=== PATIENT | male | born 1985 | race Caucasian/White ===

== ENCOUNTER → 2017-07-17 | Outpatient (CLI) | payer OTHER ==
--- NOTE | 2017-07-17 12:20 | Diagnostic Imaging Report ---
CLINICAL INDICATION: Patient with sinus pain and pressure in the maxillary area. EXAM: Axial CT scan of the maxillofacial structures with coronal reformatted images. COMPARISON: None. FINDINGS: There is mild mucosal thickening involving the left frontal recess region. There is patchy apgf-kq-pgflclok mucosal thickening involving the ethmoid sinus with the left side affected the most. There is a large amount of peripheral mucosal thickening and fluid in the left maxillary sinus. There is a large mucus retention cyst in the right maxillary sinus. The left ostiomeatal unit region is obstructed. There is cnwc-ay-rozyolny peripheral mucosal thickening in the sphenoid sinus. Nasal septum is relatively midline. Extracranial soft tissues and orbits are unremarkable. Visualized intracranial structures are unremarkable. IMPRESSION: 1: Paranasal sinusitis with the left maxillary sinus and ethmoid sinus affected the most. There is obstruction of the left ostiomeatal unit. 2: There is a large right maxillary sinus mucous retention cyst. Dictated by: Dictated on workstation # [id number]
== END ==
LOC: RAD 11:43
PROVIDERS: ATTEND Internal Medicine
DX: J32.2 Chronic ethmoidal sinusitis (principal); J32.0 Chronic maxillary sinusitis; J34.1 Cyst and mucocele of nose and nasal sinus
CPT/HCPCS: 70486

== ENCOUNTER 2019-04-22 05:38 | Outpatient (CLI) | payer OTHER ==
[~2019-04-22] VITALS: Ht 185.4 cm; Wt 129.5 kg
[2019-04-22] MEDS ORDERED: ALLO300T2 PO (14:34)
[2019-04-22] MEDS ORDERED: AMPH10TA PO (14:34)
[2019-04-22] MEDS ORDERED: OMEP40CA27 PO (14:34)
== END 2019-04-22 14:39 | disposition home or self-care (01) ==
LOC: PREOP 05:38
PROVIDERS: ATTEND Otolaryngology Otolaryngology/Facial Plastic Surgery
DX: Z01.818 Encounter for other preprocedural examination (principal)

== ENCOUNTER 2019-04-30 06:07 | Day surgery (SDC) | payer BC, OTHER ==
[~2019-04-30] VITALS: Ht 185 cm; Wt 129.5 kg
[2019-04-30] VITALS (10 sets, daily range): BP systolic 92–129; BP diastolic 71–93
[~2019-04-30 06:07] MED LIST: ALLO300T2 PO; AMPH10TA PO; OMEP40CA27 PO
[2019-04-30] MEDS ORDERED: HYDROCORTISONE 100 MG/2 ML (Solu-CORTEF) VIAL IV ONE (06:30)
[2019-04-30] MEDS ORDERED: AMPICILLIN/SULBACTAM INJECTION 1.5 GM in NS (IVPB) 100 ML IV ONE (06:30)
[2019-04-30 06:39] LABS: BASOPHILS % (AUTO) 0 % (0-10); EOSINOPHILS # (AUTO) 0.1 10^3/uL (0.0-0.3); EOSINOPHILS % (AUTO) 1 % (0-10); HEMATOCRIT 46 % (40-54); LYMPHOCYTES # (AUTO) 1.8 X 10^3 (1.0-4.0); LYMPHOCYTES % (AUTO) 21 % (12-44); MEAN CORPUSCULAR HEMOGLOBIN 30 PG (25-34); MEAN CORPUSCULAR HGB CONC 35 G/DL (32-36); MEAN CORPUSCULAR VOLUME 87 FL (80-99); MEAN PLATELET VOLUME 9.7 FL (7.4-10.4); MONOCYTES % (AUTO) 12 % (0-12); NEUTROPHILS # (AUTO) 5.7 X 10^3 (1.8-7.8); NEUTROPHILS % (AUTO) 66 % (42-75); PLATELET COUNT 126 10^3/uL (130-400); RED CELL DISTRIBUTION WIDTH 14.3 % (10.0-14.5); WHITE BLOOD COUNT 8.6 10^3/uL (4.3-11.0)
[2019-04-30] MEDS ORDERED: MIDAZOLAM 2 MG/2 ML (VERSED) VIAL ONE (06:40)
[2019-04-30] MEDS ORDERED: HYDROCORTISONE 100 MG/2 ML (Solu-CORTEF) VIAL ONE (06:40)
[2019-04-30] MEDS ORDERED: proPOfol 200 MG/20 ML (DIPRIVAN) VIAL IV ONE (06:44)
[2019-04-30] MEDS ORDERED: SEVOFLURANE (ULTANE) 15 ML INHAL SOLN ONE ×4 (06:44→08:54)
[2019-04-30] MEDS ORDERED: GLYCOPYRROLATE 0.2 MG/ML (ROBINUL) 2 ML VIAL ONE (06:44)
[2019-04-30] MEDS ORDERED: DEXAMETHASONE 10 MG/ML (DECADRON) 1 ML VIAL ONE (06:44)
[2019-04-30] MEDS ORDERED: ROCURONIUM 10 MG/ML 5 ML SYRINGE IV ONE (06:44)
[2019-04-30] MEDS ORDERED: ONDANSETRON 4 MG/2 ML (SDV) Z0FRAN ONE (06:44)
[2019-04-30] MEDS ORDERED: LIDOCAINE PF 2% 5 ML (XYLOCAINE) VIAL ONE (06:44)
[2019-04-30] MEDS ORDERED: NEOSTIGMINE 3 MG/3 ML VIAL ONE (06:44)
[2019-04-30] MEDS ORDERED: fentaNYL INJECTION 100 MCG/2 ML AMP ONE (06:45)
[2019-04-30] MEDS ORDERED: CATHETER FLUSH 10 ML SYR IV PRN (06:45)
[2019-04-30] MEDS ORDERED: LIDOCAINE/EPI 1%-1:100,000 (XYLOCAINE) 20ML ONE (06:47)
[2019-04-30] MEDS ORDERED: COCAINE HCL 4% 2 ML SYR ONE (06:47)
[2019-04-30] MEDS ORDERED: PHENYLEPHRINE 0.5% NASAL SPR (NEO-SYNEPHRINE) REG ONE (06:47)
[2019-04-30] MEDS ORDERED: BSS 15 ML ONE (06:47)
[2019-04-30] MEDS: LACTATED RINGERS 1,000 ML IV PRN ×2 (06:49→09:28)
[2019-04-30 07:05] LABS: BUN/CREATININE RATIO 15; CARBON DIOXIDE 29 MMOL/L (21-32); CHLORIDE 104 MMOL/L (98-107); CREATININE SERUM 1.15 MG/DL (0.60-1.30); GFR ESTIMATED > 60; GLUCOSE 83 MG/DL (70-105); POTASSIUM 3.5 MMOL/L (3.6-5.0); SODIUM 143 MMOL/L (135-145)
[2019-04-30] MEDS ORDERED: MIDAZOLAM 2 MG/2 ML (VERSED) VIAL IV ONE (07:15)
[2019-04-30] MEDS ORDERED: ACETAMINOPHEN 325 MG TABLET PO PRN (08:45)
[2019-04-30] MEDS ORDERED: D5 1/2 NS W/KCL 20 MEQ/L 1,000 ML IV SCH (08:45)
[2019-04-30] MEDS ORDERED: PROMETHAZINE INJ 25 MG/ML (PHENERGAN) AMP IVP PRN (08:45)
[2019-04-30] MEDS ORDERED: predniSONE 20 MG TAB PO ONE (08:45)
[2019-04-30] MEDS ORDERED: HYDROcodone/APAP 5 MG/325 MG (LORTAB) TAB PO PRN (08:45)
--- NOTE | 2019-04-30 08:45 | Progress Note-Pre Operative ---
Pre-Operative Progress Note H&P Reviewed The H&P was reviewed, patient examined and no changes noted. Date Seen by Provider: Apr 30, 2019 Time Seen by Provider: 07:00 Date H&P Reviewed: Apr 30, 2019 Time H&P Reviewed: 07:00 Pre-Operative Diagnosis: Bilat Chrnoic Sinusitis, Deviated nasal septum, Bialt hyper of inf turbs THELMA BARNES MD Apr 30, 2019 08:45
--- NOTE | 2019-04-30 08:47 | Progress Note-Post Operative ---
Post-Operative Progess Note Surgeon (s)/Music Composition Teacher (s) Surgeon THELMA BARNES MD Music Composition Teacher n/a Pre-Operative Diagnosis Bilat Chrnoic Sinusitis, Deviated nasal septum, Bialt hyper of inf turbs Post-Operative Diagnosis same Post-Op Procedure Note Date of Procedure: Apr 30, 2019 Name of Procedure Performed: Bilat ESS, Nasal Septoplasty, Bialt REd of Inf Turbs Description & Findings Description and Findings: n/a Anesthesia Type get Estimated Blood Loss minimal Packing none. Specimen(s) collected/removed bialt Chrnic Sinus disesae, nasal septum THELMA BARNES MD Apr 30, 2019 08:47
[2019-04-30] MEDS ORDERED: morphine INJ 10 MG/ML 1ML (SYR OR VIAL) IVP ONE (09:00)
[2019-04-30] MEDS ORDERED: HYDROmorphone 2 MG/ML VIAL (DILAUDID) IV ONE (09:00)
[2019-04-30] MEDS ORDERED: MEPERIDINE (DEMEROL) INJ 50 MG/ML IVP ONE (09:00)
[2019-04-30] MEDS ORDERED: ONDANSETRON 4 MG/2 ML (SDV) Z0FRAN IVP PRN (09:00)
[2019-04-30] MEDS ORDERED: PROMETHAZINE INJ 25 MG/ML (PHENERGAN) AMP IVP ONE (09:00)
[2019-04-30] MEDS ORDERED: morphine INJ 10 MG/ML 1ML (SYR OR VIAL) ONE (09:06)
--- NOTE | 2019-04-30 10:25 | Anesthesia-General Post-Op ---
General Patient Condition Mental Status/LOC: Same as Preop Cardiovascular: Satisfactory Nausea/Vomiting: Absent Respiratory: Satisfactory Pain: Controlled Complications: Absent Post Op Complications Complications None Follow Up Care/Instructions Patient Instructions None needed. Anesthesia/Patient Condition Patient Condition Patient is doing well, no complaints, stable vital signs, no apparent adverse anesthesia problems. No complications reported per nursing. ALEXANDRIA LYNNE CRNA Apr 30, 2019 10:25
[2019-04-30] MEDS ORDERED: PRD20T PO (10:26)
[2019-04-30] MEDS ORDERED: HYDR-4226 PO (10:26)
[2019-04-30] MEDS ORDERED: AMOX-355 PO (10:26)
--- OUTSIDE RECORDS SUMMARY | 2019-05-04 12:27 | XMS REPORT | Continuity of Care Document ---
Author Organization Unknown Address Unknown Phone Unavailable Allergies Active Description Code Type Severity Reaction Onset Reported/Identified Relationship to Patient Clinical Status Yes No Known Drug Allergies [id number] Drug Allergy Unknown N/A 04/22/2019 Medications There is no data. Problems Date Dx Coded Attending Type Code Diagnosis Diagnosed By 07/18/2017 MARIE BERNAL DO, Ot J32.0 CHRONIC MAXILLARY SINUSITIS 07/18/2017 MARIE BERNAL DO, Ot J32.2 CHRONIC ETHMOIDAL SINUSITIS 07/18/2017 MARIE BERNAL DO, Ot J32.0 CHRONIC MAXILLARY SINUSITIS 07/18/2017 MARIE BERNAL DO, Ot J32.2 CHRONIC ETHMOIDAL SINUSITIS 07/18/2017 MARIE BERNAL DO, Ot J32.0 CHRONIC MAXILLARY SINUSITIS 07/18/2017 MARIE BERNAL DO, Ot J32.2 CHRONIC ETHMOIDAL SINUSITIS 07/18/2017 MARIE BERNAL DO, Ot J34.1 CYST AND MUCOCELE OF NOSE AND NASAL SINU 12/13/2017 MARIE BERNAL DO, Ot J32.0 CHRONIC MAXILLARY SINUSITIS 12/13/2017 MARIE BERNAL DO, Ot J32.2 CHRONIC ETHMOIDAL SINUSITIS 12/13/2017 MARIE BERNAL DO, Ot J34.1 CYST AND MUCOCELE OF NOSE AND NASAL SINU 04/22/2019 MOLLY KEANE, THELMA Pozo Ot Z01.818 ENCOUNTER FOR OTHER PREPROCEDURAL EXAMIN 04/23/2019 THELMA BARNES MD Ot Z01.818 ENCOUNTER FOR OTHER PREPROCEDURAL EXAMIN 04/23/2019 MARIE BERNAL DO, Ot J32.0 CHRONIC MAXILLARY SINUSITIS 04/23/2019 MARIE BERNAL DO, Ot J32.2 CHRONIC ETHMOIDAL SINUSITIS 04/23/2019 MARIE BERNAL DO Ot J34.1 CYST AND MUCOCELE OF NOSE AND NASAL SINU 04/28/2019 BERNAL DO, MARIE J Ot J32.0 CHRONIC MAXILLARY SINUSITIS 04/28/2019 BERNAL DO, MARIE Doss Ot J32.2 CHRONIC ETHMOIDAL SINUSITIS 04/28/2019 BERNAL DO, MARIE Doss Ot J34.1 CYST AND MUCOCELE OF NOSE AND NASAL SINU 04/29/2019 BERNAL DO, MARIE Doss Ot J32.0 CHRONIC MAXILLARY SINUSITIS 04/29/2019 BERNAL DO, MARIE Doss Ot J32.2 CHRONIC ETHMOIDAL SINUSITIS 04/29/2019 BERNAL DO, MARIE Doss Ot J34.1 CYST AND MUCOCELE OF NOSE AND NASAL SINU 04/30/2019 BERNAL DO, MARIE Doss Ot J32.0 CHRONIC MAXILLARY SINUSITIS 04/30/2019 BERNAL DO, MARIE Doss Ot J32.2 CHRONIC ETHMOIDAL SINUSITIS 04/30/2019 BERNAL DO, MARIE Doss Ot J34.1 CYST AND MUCOCELE OF NOSE AND NASAL SINU Procedures There is no data. Results Test Result Range Complete blood count (CBC) with automate d white blood cell (WBC) differential - 04/30/19 06:35 Blood leukocytes automated count (number/volume) 8.6 10*3/uL 4.3-11.0 Blood erythrocytes automated count (number/volume) 5.28 10*6/uL 4.35-5.85 Venous blood hemoglobin measurement (mass/volume) 16.0 g/dL 13.3-17.7 Blood hematocrit (volume fraction) 46 % 40-54 Automated erythrocyte mean corpuscular volume 87 [ foz_us] 80-99 Automated erythrocyte mean corpuscular h emoglobin (mass per erythrocyte) 30 pg 25-34 Automated erythrocyte mean corpuscular h emoglobin concentration measurement (mass/volume) 35 g/dL 32-36 Automated erythrocyte distribution width ratio 14. 3 % 10.0- 14.5 Automated blood platelet count (count/volume) 126 10*3/uL 130-400 Automated blood platelet mean volume measurement 9.7 [foz_us] 7.4-10.4 Automated blood neutrophils/100 leukocytes 66 % 42-75 Automated blood lymphocytes/100 leukocytes 21 % 12-44 Blood monocytes/100 leukocytes 12 % 0-12 Automated blood eosinophils/100 leukocytes 1 % 0-10 Automated blood basophils/100 leukocytes 0 % 0-10 Blood neutrophils automated count (number/volume) 5.7 10*3 1.8-7.8 Blood lymphocytes automated count (number/volume) 1.8 10*3 1.0-4.0 Blood monocytes automated count (number/volume) 1. 0 10*3 0.0-1.0 Automated eosinophil count 0.1 10*3/uL 0 .0-0.3 Automated blood basophil count (count/volume) 0.0 10*3/uL 0.0-0.1 Whole blood basic metabolic panel - 07/14 06:35 Serum or plasma sodium measurement (moles/volume) 143 mmol/L 135-145 Serum or plasma potassium measurement (moles/volume) 3.5 mmol/L 3.6-5.0 Serum or plasma chloride measurement (moles/volume) 104 mmol/L 98-107 Carbon dioxide 29 mmol/L 21-32 Serum or plasma anion gap determination (moles/volume) 10 mmol/L 5-14 Serum or plasma urea nitrogen measurement (mass/volume ) 17 mg/dL 7-18 Serum or plasma creatinine measurement (mass/volume) 1.15 mg/dL 0.60-1.30 Serum or plasma urea nitrogen/creatinine mass ratio 15 NRG Serum or plasma creatinine measurement w ith calculation of estimated glomerular filtration rate > NRG Serum or plasma glucose measurement (mass/volume) 83 mg/dL 70-105 Serum or plasma calcium measurement (mass/volume) 9.0 mg/dL 8.5-10.1 Methicillin resistant Staphylococcus aur eus (MRSA) screening culture - 04/30/19 06:35 Methicillin resistant Staphylococcus aureus (MRSA) scr eening culture NEG NRG Encounters ACCT No. Visit Date/Time Discharge Status Pt. Type Provider Facility Loc./Unit Complaint [id number] 04/30/2019 06:07:00 020 11:03:00 DIS Outpatient [facility] CHRON[facility] S[facility]USITIS,AMINAA FREDY SEPTUM [id number] 04/22/2019 05:38:00 020 14:39:00 DIS Outpatient THELMA BARNES MD [facility] PREOP CHONIC SINUSITIS, AMINAA FREDY SEPTUM [id number] 11/18/2017 11:19:00 018 23:59:59 CLS Preadmit MARIE EBRNAL DO [facility] SLEEP G47.33 DEMETRICE [id number] 07/17/2017 11:43:00 018 23:59:59 [facility] Outpatient MARIE BERNAL DO [facility] RAD J01.01
== END 2019-04-30 11:03 | disposition home or self-care (01) ==
LOC: SDC 06:07
PROVIDERS: ATTEND Otolaryngology Otolaryngology/Facial Plastic Surgery
DX: J34.2 Deviated nasal septum (principal); J32.9 Chronic sinusitis, unspecified; J34.89 Other specified disorders of nose and nasal sinuses; J34.3 Hypertrophy of nasal turbinates; R09.81 Nasal congestion; J30.9 Allergic rhinitis, unspecified; K21.9 Gastro-esophageal reflux disease without esophagitis; E66.9 Obesity, unspecified; M10.9 Gout, unspecified; Z79.899 Other long term (current) drug therapy; Z90.89 Acquired absence of other organs; Z68.37 Body mass index [BMI] 37.0-37.9, adult
CPT/HCPCS: 36415; 80048; 85025; 87081

== ENCOUNTER 2020-01-31 17:59 | Inpatient (IN) | payer BC ==
[~2020-01-31] VITALS: Ht 185 cm; Wt 131.5 kg
[~2020-01-31 17:59] MED LIST changes: +AMOX-355 PO; +HYDR-4226 PO; +PRD20T PO
[2020-01-31] MEDS ORDERED: LACTATED RINGERS 1,000 ML IV STA (18:33)
--- NOTE | 2020-01-31 18:40 | ED General ---
General Chief Complaint: Respiratory Problems Stated Complaint: COVID POSITIVE/LOW O2 Nursing Triage Note: PT PRESENTS TO ED WITH COMPLAINTS OF SOA, FEVER, AND COUGH. PT STARTED FEELING ILL ON 01/22. PT REPORTS HE TESTED POSITIVE FOR COVID ON 02/23. PT REPORTS INCREASED SOA WITH MOVEMENT/AMBULATION AND 02 SAT AT HOME OF UPPER 80%. Nursing Sepsis Screen: Possible Sepsis Risk Source of Information: Patient Exam Limitations: No Limitations History of Present Illness Date Seen by Provider: Jan 31, 2020 Time Seen by Provider: 18:21 Initial Comments Here with report of shortness of air with O2 sat in the mid 80s at home with any activity. Resting O2 sat is 90-91. He is positive for COVID-19 and is at day 8 of the illness. Tested at [place] [facility] on 01/24/2029 was positive. They did initiate azithromycin as well as 10-day dose of dexamethasone. He has completed the azithromycin and is still on dexamethasone. Denies nausea, vomiting or diarrhea. Has had persistent fever and weakness with headache. Timing/Duration: 1 Week, Getting Worse Severity: Moderate Modifying Factors: improves with Rest Associated Systoms: No Chest Pain; Cough, Fever/Chills; No Nausea/Vomiting; Shortness of Air, Weakness Allergies and Home Medications Allergies Coded Allergies: No Known Drug Allergies (Unverified , 04/22/19) Home Medications Allopurinol 300 Mg Tablet, 300 MG PO DAILY, (Reported) Amoxicillin/Potassium Clav 1 Each Tablet, 1 EACH PO BID Prescribed by: ELVIN BURKS on 04/30/19 1026 Amphetamine Sulfate 10 Mg Tablet, 10 MG PO DAILY, (Reported) Hydrocodone/Acetaminophen 1 Each Tablet, 1-2 TAB PO Q4-6HR Prescribed by: ELVIN BURKS on 04/30/19 1026 Omeprazole 40 Mg Capsule.dr, 40 MG PO DAILY, (Reported) Prednisone 20 Mg Tab, 20 MG PO UD Prescribed by: ELVIN BURKS on 04/30/19 1026 Patient Home Medication List Home Medication List Reviewed: Yes Review of Systems Review of Systems Constitutional: see HPI EENTM: nose congestion; No throat pain Respiratory: cough, short of breath Cardiovascular: No chest pain, No edema Gastrointestinal: see HPI; No nausea, No vomiting Genitourinary: no symptoms reported Musculoskeletal: No joint pain; muscle pain Skin: no symptoms reported All Other Systems Reviewed Negative Unless Noted: Yes Past Jhczvmd-Wbdlmy-Tludfg Hx Past Med/Social Hx: Reviewed Nursing Past Med/Soc Hx Patient Social History Alcohol Use: Occasionally Uses Recreational Drug Use: No Smoking Status: Former Smoker Former Smoker, Quit: Apr 22, 2014 Recent Foreign Travel: No Contact w/Someone Who Travel: No Recent Infectious Disease Expo: No Recent Hopitalizations: No Physical Abuse: No Sexual Abuse: No Mistreated: No Fear: No Seasonal Allergies Seasonal Allergies: Yes Past Medical History Surgeries: Yes (R shoulder) Orthopedic, Tonsillectomy Respiratory: No Cardiac: No Neurological: No Genitourinary: No Gastrointestinal: Yes Gastroesophageal Reflux Musculoskeletal: Yes Gout Endocrine: No HEENT: No Cancer: No Psychosocial: No Integumentary: No Blood Disorders: No Family Medical History Reviewed Nursing Family Hx Physical Exam-Suspected Sepsis Physical Exam Vital Signs Vital Signs - First Documented 01/31/20 18:17 Temp 36.8 Pulse 92 Resp 33 B/P (MAP) 120/89 (99) Pulse Ox 97 O2 Delivery Nasal Cannula O2 Flow Rate 2.00 Capillary Refill : Less Than 3 Seconds Blood Pressure Mean: 99 Height, Weight, BMI Height: '" Weight: lbs. oz. kg; 38.00 BMI Method: General Appearance: No Apparent Distress, WD/WN HEENT: PERRL/EOMI, Pharyngeal Erythema Neck: Non Tender, Supple Respiratory: Lungs Clear, Normal Breath Sounds Cardiovascular: Regular Rate, Rhythm, No Murmur Gastrointestinal: Non Tender, Soft Back: Normal Inspection, No CVA Tenderness, No Vertebral Tenderness Extremity: Normal Range of Motion, Non Tender Neurologic/Psychiatric: Alert, Oriented x3 Skin: normal color, warm/dry Focused Exam Lactate Level 01/31/20 18:37: Lactic Acid Level 0.83 Lactic Acid Level Laboratory Tests Test 01/31/20 18:37 Lactic Acid Level 0.83 MMOL/L (0.50-2.00) Progress/Results/Core Measures Suspected Sepsis Recent Fever Within 48 Hours: Yes Infection Criteria Present: Documented Infection New/Unexplained Altered Menta: No Sepsis Screen: Possible Sepsis Risk SIRS Temperature: Pulse: 92 Respiratory Rate: 33 Laboratory Tests 01/31/20 18:37: White Blood Count 2.7L Blood Pressure 120 /89 Mean: 99 01/31/20 18:37: Lactic Acid Level 0.83 Laboratory Tests 01/31/20 18:37: Creatinine 1.17, INR Comment 1.0, Platelet Count 118L, Total Bilirubin 0.5 Results/Orders Lab Results Laboratory Tests Test 01/31/20 18:37 Range/Units White Blood Count 2.7 L 4.3-11.0 10^3/uL Red Blood Count 4.77 4.30-5.52 10^6/uL Hemoglobin 14.8 13.3-17.7 g/dL Hematocrit 42 40-54 % Mean Corpuscular Volume 88 80-99 fL Mean Corpuscular Hemoglobin 31 25-34 pg Mean Corpuscular Hemoglobin Concent 35 32-36 g/dL Red Cell Distribution Width 12.0 10.0-14.5 % Platelet Count 118 L 130-400 10^3/uL Mean Platelet Volume 9.4 9.0-12.2 fL Immature Granulocyte % (Auto) 1 % Neutrophils (%) (Auto) 81 H 42-75 % Lymphocytes (%) (Auto) 12 12-44 % Monocytes (%) (Auto) 6 0-12 % Eosinophils (%) (Auto) 0 0-10 % Basophils (%) (Auto) 0 0-10 % Neutrophils # (Auto) 2.2 1.8-7.8 10^3/uL Lymphocytes # (Auto) 0.3 L 1.0-4.0 10^3/uL Monocytes # (Auto) 0.2 0.0-1.0 10^3/uL Eosinophils # (Auto) 0.0 0.0-0.3 10^3/uL Basophils # (Auto) 0.0 0.0-0.1 10^3/uL Immature Granulocyte # (Auto) 0.0 0.0-0.1 10^3/uL Prothrombin Time 13.5 12.2-14.7 SEC INR Comment 1.0 0.8-1.4 Activated Partial Thromboplast Time 38 H 24-35 SEC D-Dimer 0.36 0.00-0.49 UG/ML Sodium Level 138 135-145 MMOL/L Potassium Level 3.7 3.6-5.0 MMOL/L Chloride Level 104 98-107 MMOL/L Carbon Dioxide Level 21 21-32 MMOL/L Anion Gap 13 5-14 MMOL/L Blood Urea Nitrogen 14 7-18 MG/DL Creatinine 1.17 0.60-1.30 MG/DL Estimat Glomerular Filtration Rate > 60 BUN/Creatinine Ratio 12 Glucose Level 170 H 70-105 MG/DL Lactic Acid Level 0.83 0.50-2.00 MMOL/L Calcium Level 8.4 L 8.5-10.1 MG/DL Corrected Calcium 8.4 L 8.5-10.1 MG/DL Total Bilirubin 0.5 0.1-1.0 MG/DL Aspartate Amino Transf (AST/SGOT) 19 5-34 U/L Alanine Aminotransferase (ALT/SGPT) 18 0-55 U/L Alkaline Phosphatase 38 L 40-136 U/L C-Reactive Protein High Sensitivity 13.71 H 0.00-0.50 MG/DL Total Protein 7.1 6.4-8.2 GM/DL Albumin 4.0 3.2-4.5 GM/DL My Orders Orders - GABRIELA GRIGGS MD Lactated Ringers (Lr 1000 Ml Iv Solution (01/31/20 18:33) Cbc With Automated Diff (01/31/20 18:33) Comprehensive Metabolic Panel (01/31/20 18:33) Blood Culture (01/31/20 18:33) Sputum Culture (01/31/20 18:33) Urinalysis (01/31/20 18:33) Urine Culture (01/31/20 18:33) Protime With Inr (01/31/20 18:33) Partial Thromboplastin Time (01/31/20 18:33) Chest 1 View, Ap/Pa Only (01/31/20 18:33) Ed Iv/Invasive Line Start (01/31/20 18:33) Vital Signs Adult Sepsis Patie Q15M (01/31/20 18:33) O2 (01/31/20 18:33) Remove Rings In Anticipation O (01/31/20 18:33) Lactic Acid Analyzer (01/31/20 18:33) Fibrin Degradation Products (01/31/20 18:33) Procalcitonin (Pct) (01/31/20 18:33) Hs C Reactive Protein (01/31/20 18:33) Convalescent Plasma (01/31/20 19:30) Abo Rh Type (01/31/20 19:30) Vital Signs/I&O 01/31/20 01/31/20 18:17 18:30 Temp 36.8 Pulse 92 Resp 33 B/P (MAP) 120/89 (99) Pulse Ox 97 97 O2 Delivery Nasal Cannula Nasal Cannula O2 Flow Rate 2.00 2.00 Capillary Refill : Less Than 3 Seconds Blood Pressure Mean: 99 Progress Note : Progress Note Seen and evaluated. IV, labs, chest x-ray, blood cultures and lactic acid ordered. Monitor patient. 1924: Chest x-ray shows bilateral infiltrates. Patient will require admission. I have discussed the case with Dr. Hanna and she accepts patient for admission to the medical floor. We will continue oxygen and initiate remdesivir and convalescent plasma. We will continue Decadron. All of this was discussed with the patient who agrees. I did discuss with him about emergency use authorization for convalescent plasma and discussed risk and benefits and that this is a study therapy. After discussion, patient verbalized that he would like to pursue therapy with both convalescent plasma and remdesivir. Admit, inpatient status. Patient agrees with plan. Diagnostic Imaging Diagonstic Imaging: Xray Plain Films/CT/US/NM/MRI: chest Comments Bilateral infiltrates consistent with Covid pneumonia Departure Communication (Admissions) Time/Spoke to Admitting Phy: 19:25 Impression Primary Impression: Pneumonia due to COVID-19 virus Additional Impression: Hypoxia Disposition: ADMITTED INPATIENT Condition: Stable Admissions Decision to Admit Reason: Admit from ER (General) Decision to Admit/Date: Jan 31, 2020 Time/Decision to Admit Time: 19:25 Departure-Patient Inst. Referrals: MARIE BERNAL DO (PCP/Family) Primary Care Physician GABRIELA GRIGGS MD Jan 31, 2020 18:40
[2020-01-31 18:49] LABS: BASOPHILS % (AUTO) 0 % (0-10); EOSINOPHILS % (AUTO) 0 % (0-10); HEMATOCRIT 42 % (40-54); HEMOGLOBIN 14.8 g/dL (13.3-17.7); LYMPHOCYTES # (AUTO) 0.3 10^3/uL (1.0-4.0); LYMPHOCYTES % (AUTO) 12 % (12-44); MEAN CORPUSCULAR HEMOGLOBIN 31 pg (25-34); MEAN CORPUSCULAR HGB CONC 35 g/dL (32-36); MEAN CORPUSCULAR VOLUME 88 fL (80-99); MEAN PLATELET VOLUME 9.4 fL (9.0-12.2); MONOCYTES # (AUTO) 0.2 10^3/uL (0.0-1.0); MONOCYTES % (AUTO) 6 % (0-12); NEUTROPHILS # (AUTO) 2.2 10^3/uL (1.8-7.8); NEUTROPHILS % (AUTO) 81 % (42-75); PLATELET COUNT 118 10^3/uL (130-400); WHITE BLOOD COUNT 2.7 10^3/uL (4.3-11.0)
[2020-01-31 19:01] LABS: CHLORIDE 104 MMOL/L (98-107); POTASSIUM 3.7 MMOL/L (3.6-5.0); SODIUM 138 MMOL/L (135-145)
[2020-01-31 19:02] LABS: CALCIUM 8.4 MG/DL (8.5-10.1)
[2020-01-31 19:03] LABS: GLUCOSE 170 MG/DL (70-105); TOTAL PROTEIN 7.1 GM/DL (6.4-8.2)
[2020-01-31 19:04] LABS: CARBON DIOXIDE 21 MMOL/L (21-32)
[2020-01-31 19:05] LABS: BILIRUBIN,TOTAL 0.5 MG/DL (0.1-1.0)
[2020-01-31 19:07] LABS: ALKALINE PHOSPHATASE 38 U/L (40-136); CREATININE SERUM 1.17 MG/DL (0.60-1.30); GFR ESTIMATED > 60
[2020-01-31 19:08] LABS: BUN/CREATININE RATIO 12
[2020-01-31 19:10] LABS: ALANINE AMINOTRANSFERASE 18 U/L (0-55)
[2020-01-31 19:16] LABS: FIBRIN DEGRADATION PRODUCTS 0.36 UG/ML (0.00-0.49); PROTHROMBIN TIME PATIENT 13.5 SEC (12.2-14.7)
[2020-01-31 20:33] VITALS: BP 130/70
[2020-01-31] MEDS: ACETAMINOPHEN 500 MG TAB (TYLENOL) PO PRN (21:26)
[2020-01-31 23:51] VITALS: BP 140/83
[2020-02-01] VITALS (7 sets, daily range): BP systolic 120–161; BP diastolic 66–91
[2020-02-01] MEDS: ENOXAPARIN 40 MG/0.4 ML (LOVENOX) SYR SC SCH ×2 (00:27→21:46)
--- NOTE | 2020-02-01 01:38 | NUR ---
ALbuterol inhaler 4puffs BID and Q2 PRN. IS Therapy BID. Initiate 02 to keep sats greater than 90%. RT to reassess or reevaluate in 72 hours or as needed. Addendum: 02/01/20 at 0138 by JONNIE MAI RT Amended: Links added.
[2020-02-01] MEDS: RT-ALBUTEROL INHALER HFA (VENTOLIN HFA) 18 GM IH PRN ×2 (02:41→17:29)
[2020-02-01] MEDS: ACETAMINOPHEN 500 MG TAB (TYLENOL) PO PRN ×2 (03:37→19:36)
[2020-02-01] MEDS: LACTATED RINGERS 1,000 ML IV SCH ×3 (03:38→21:45)
[2020-02-01] MEDS: RT-ALBUTEROL INHALER HFA (VENTOLIN HFA) 18 GM IH SCH ×2 (06:53→21:38)
[2020-02-01] MEDS ORDERED: FLU QUADRIvalent (3YOA+) 60 mcg/0.5 ml 2020-21 (AFLURIA) IM ONE (07:00)
[2020-02-01] MEDS: dexAMETHasone 6 MG TAB (DECADRON) PO SCH (07:12)
[2020-02-01 07:29] LABS: BASOPHILS % (AUTO) 0 % (0-10); EOSINOPHILS % (AUTO) 0 % (0-10); HEMATOCRIT 40 % (40-54); HEMOGLOBIN 13.8 g/dL (13.3-17.7); LYMPHOCYTES # (AUTO) 0.6 10^3/uL (1.0-4.0); LYMPHOCYTES % (AUTO) 22 % (12-44); MEAN CORPUSCULAR HEMOGLOBIN 31 pg (25-34); MEAN CORPUSCULAR HGB CONC 35 g/dL (32-36); MEAN CORPUSCULAR VOLUME 88 fL (80-99); MEAN PLATELET VOLUME 9.4 fL (9.0-12.2); MONOCYTES # (AUTO) 0.3 10^3/uL (0.0-1.0); MONOCYTES % (AUTO) 11 % (0-12); NEUTROPHILS # (AUTO) 1.9 10^3/uL (1.8-7.8); NEUTROPHILS % (AUTO) 67 % (42-75); PLATELET COUNT 115 10^3/uL (130-400); WHITE BLOOD COUNT 2.8 10^3/uL (4.3-11.0)
[2020-02-01 07:47] LABS: ALBUMIN 3.9 GM/DL (3.2-4.5); CHLORIDE 102 MMOL/L (98-107); POTASSIUM 3.6 MMOL/L (3.6-5.0); SODIUM 139 MMOL/L (135-145)
[2020-02-01 07:48] LABS: CALCIUM 7.9 MG/DL (8.5-10.1)
[2020-02-01 07:49] LABS: GLUCOSE 106 MG/DL (70-105); TOTAL PROTEIN 6.3 GM/DL (6.4-8.2)
[2020-02-01 07:50] LABS: CARBON DIOXIDE 26 MMOL/L (21-32)
[2020-02-01 07:51] LABS: BILIRUBIN,TOTAL 0.5 MG/DL (0.1-1.0)
[2020-02-01 07:53] LABS: ALKALINE PHOSPHATASE 36 U/L (40-136); CREATININE SERUM 0.99 MG/DL (0.60-1.30); GFR ESTIMATED > 60
[2020-02-01 07:54] LABS: BUN/CREATININE RATIO 11
[2020-02-01 07:56] LABS: ALANINE AMINOTRANSFERASE 16 U/L (0-55)
[2020-02-01] MEDS ORDERED: REMDESIVIR INJ 200 MG in NS (IVPB) 210 ML IV NR (08:00)
[2020-02-01] MEDS: PANTOPRAZOLE 40 MG (PROTONIX) TAB PO SCH (09:14)
--- NOTE | 2020-02-01 13:16 | History & Physical-Hospitalist ---
History of Present Illness HPI/Chief Complaint Sin Saleh is a 34 year old male who presented with shortness of breath. He was diagnosed with COVID-19 at Urgent care on 01/24. He first started having symptoms on 01/22. He reports fevers. He has had shortness of breath and cough. He reports body aches. He has had abnormal taste and smell. He has not had much of an appetite until this morning. He reports diarrhea. He denies nausea and vomiting. He denies abdominal pain. Je denies chest pain. He has no other complaints or concerns. Source: patient Exam Limitations: no limitations Date Seen 02/01/20 Time Seen by a Provider: 11:15 Attending Physician Mindi Guerra MD PCP Huang Saul DO Referring Physician Date of Admission Jan 31, 2020 at 19:49 Home Medications & Allergies Home Medications Reviewed patient Home Medication Reconciliation performed by pharmacy medication reconciliations concrete technician and/or nursing. Patients Allergies have been reviewed. Allergies Allergies Coded Allergies No Known Drug Allergies (Unverified04/22/19) Past Kzslxoj-Kyoibm-Zsfucu Hx Past Med/Social Hx: Reviewed Nursing Past Med/Soc Hx Patient Social History Alcohol Use: Occasionally Uses Recreational Drug Use: No Smoking Status: Former Smoker Former Smoker, Quit: Apr 22, 2014 Recent Foreign Travel: No Contact w/other who traveled: No Recent Hopitalizations: No Recent Infectious Disease Expo: Yes (covid19) Seasonal Allergies Seasonal Allergies: Yes Past Medical History Surgeries: Orthopedic, Tonsillectomy Gastrointestinal: Gastroesophageal Reflux Musculoskeletal: Gout History of Blood Disorders: No Family History Reviewed Nursing Family Hx Diabetes mellitus 18 MOTHER Review of Systems Constitutional: fever, malaise EENTM: see HPI Respiratory: cough, short of breath Cardiovascular: no symptoms reported Gastrointestinal: diarrhea Genitourinary: no symptoms reported Musculoskeletal: muscle pain Skin: no symptoms reported Psychiatric/Neurological: No Symptoms Reported Physical Exam Physical Exam Vital Signs Vital Signs - First Documented 01/31/20 02/01/20 18:17 01:27 Temp 36.8 Pulse 92 Resp 33 B/P (MAP) 120/89 (99) Pulse Ox 97 O2 Delivery Nasal Cannula O2 Flow Rate 2.00 FiO2 28 Capillary Refill : Less Than 3 Seconds Height, Weight, BMI Height: '" Weight: lbs. oz. kg; 38.42 BMI Method: General Appearance: No Apparent Distress, Obese HEENT: PERRL/EOMI, Pharynx Normal Neck: Normal Inspection, Supple Respiratory: Lungs Clear, Normal Breath Sounds, Respiratory Distress (tachypnea) Cardiovascular: Regular Rate, Rhythm, No Edema, No Murmur Gastrointestinal: Normal Bowel Sounds, Non Tender, Soft Extremity: Normal Inspection, Non Tender, No Pedal Edema Neurologic/Psychiatric: Alert, Oriented x3, No Motor/Sensory Deficits, Normal Mood/Affect Skin: Normal Color, Warm/Dry Results Results/Procedures Labs Laboratory Tests 01/31/20 18:37 02/01/20 07:06 Patient resulted labs reviewed. Imaging: Reviewed Imaging Report Assessment/Plan Admission Diagnosis Acute respiratory failure due to COVID-19 Admission Status: Inpatient Order (span 2 midnights) Reason for Inpatient Admission: Respiratory failure requring supplemental oxygen COVID-19 requiring inpatient treatment Assessment and Plan Acute respiratory failure due to COVID-19 Lymphopenia due to COVID-19 COVID positive 01/24 at Urgent Care Continue Decadron, taking outpatient since 01/24 Completed course of Azithromycin outpatient Procalitonin remains normal, antibiotics not indicated Started on Remdesivir Convalescent plasma ordered Supplemental oxygen as needed MAT protocol Incentive spirometer D-dimer normal Lovenox DVT prophylaxis Obesity Clinically significant, no acute management needs DVT Prophylaxis: Lovenox Diagnosis/Problems Diagnosis/Problems (1) Pneumonia due to COVID-19 virus Status: Acute (2) Acute respiratory failure due to COVID-19 (3) Lymphopenia associated with COVID-19 Status: Acute (4) Obesity Status: Chronic Clinical Quality Measures DVT/VTE Risk/Contraindication: Risk Factor Score Per Nursin RFS Level Per Nursing on Admit: 2=Moderate CAMELIA SERNA MD Feb 01, 2020 13:16
[2020-02-01] MEDS ORDERED: ACET325T38 PO (14:03)
[2020-02-01] MEDS ORDERED: FENO134C PO (14:03)
[2020-02-01] MEDS ORDERED: DEXT15CA33 PO (14:03)
[2020-02-01] MEDS ORDERED: DEXA6TAB PO (14:03)
--- NOTE | 2020-02-01 14:05 | NUR ---
I SPOKE WITH THE PATIENT ON THE ROOM PHONE AND WENT THROUGH THE EXTERNAL MED HISTORY TO COMPLETE THIS MED REC. PATIENT WAS PRESCRIBED DEXAMETHASONE 6MG ON 01/25/20 SO HIS LAST DOSE SHOULD BE 02/03/20. OTC: TYLENOL
--- NOTE | 2020-02-01 15:20 | NUR ---
"RD ASSESSMENT PMHx: GERD; gout; PT INTERACTION: Note pt is currently in COVID isolation, per chart review. Note all diet information is per chart review, or per nurse aide. Aide states current appetite appears good. Note PO intake 100% x1meal, per chart review. Note no issues with n/v/c/d at this time, and pt stated to aide that last BM was /6. Note pt not currently on bowel regimen per chart review. Note recent 4# wt gain x9mon, per chart review. ABNORMAL NUTRITION-RELATED LAB VALUES LOW: Ca 7.9; alkphos 36; Pro 6.3; HIGH: glu 106; Est. kcal needs: 8057-6086 kcal | 15-18 g Pro/kg Est. Pro needs: 105-132 g Pro | 0.8-1.0 g Pro/kg PES STATEMENT: Given current PO intake, no nutrition diagnosis at this time (NO-1.1). INTERVENTION: Continue with current diet order of Regular diet. DC current supplementation order of Ensure Enlive with meals. Pt is consuming >75% of meals. Will continue to follow and reassess as pt needs, intake, and status change. Ramón Brown, RD LD [phone] cell"
[2020-02-01] MEDS ORDERED: diphenhydrAMINE 25 MG TAB (BENADRYL) PO PRN (20:45)
[2020-02-01] MEDS ORDERED: LOPERAMIDE 2 MG (IMODIUM) TABLET PO PRN (20:45)
[2020-02-01] MEDS ORDERED: DOCUSATE SODIUM 100 MG (COLACE) CAP PO PRN (20:45)
[2020-02-01] MEDS ORDERED: ZOLPIDEM 5 MG (AMBIEN) TAB PO ONE (20:45)
[2020-02-01] MEDS ORDERED: HYDROcodone/APAP 5 MG/325 MG (LORTAB) TAB PO PRN (20:45)
[2020-02-01] MEDS ORDERED: CALCIUM CARBONATE 500 MG (TUMS) TAB.CHEW PO PRN (20:45)
[2020-02-01] MEDS ORDERED: ALPRAZolam 0.25 MG (XANAX) TAB PO PRN (20:45)
[2020-02-01] MEDS ORDERED: ONDANSETRON 4 MG/2 ML (SDV) Z0FRAN IVP PRN (20:45)
[2020-02-01] MEDS ORDERED: DOCUSATE SODIUM 100 MG (COLACE) CAP PO ONE (21:21)
[2020-02-01] MEDS ORDERED: ZOLPIDEM 5 MG (AMBIEN) TAB ONE (21:21)
[2020-02-01] MEDS: MELATONIN 3 MG TABLET PO PRN (21:46)
[2020-02-01] MEDS: ZOLPIDEM 5 MG (AMBIEN) TAB PO SCH (21:51)
[2020-02-01] MEDS: SENNA W/DOCUSATE (SENOKOT S) TABLET PO SCH (21:51)
--- NOTE | 2020-02-01 21:52 | NUR ---
Dr. arias ordered Ambien for sleep 5mg PO ONCE and then 5mg scheduled at 2100. One time dosed administered, scheduled dosed non-administered.
[2020-02-02] VITALS (8 sets, daily range): BP systolic 122–150; BP diastolic 72–94
[2020-02-02 05:21] LABS: ALBUMIN 3.5 GM/DL (3.2-4.5); CHLORIDE 104 MMOL/L (98-107); POTASSIUM 4.2 MMOL/L (3.6-5.0); SODIUM 142 MMOL/L (135-145)
[2020-02-02 05:22] LABS: CALCIUM 7.9 MG/DL (8.5-10.1)
[2020-02-02 05:24] LABS: GLUCOSE 100 MG/DL (70-105); TOTAL PROTEIN 5.6 GM/DL (6.4-8.2)
[2020-02-02 05:25] LABS: BILIRUBIN,TOTAL 0.4 MG/DL (0.1-1.0); CARBON DIOXIDE 28 MMOL/L (21-32)
[2020-02-02 05:27] LABS: ALKALINE PHOSPHATASE 31 U/L (40-136); CREATININE SERUM 0.95 MG/DL (0.60-1.30); GFR ESTIMATED > 60
[2020-02-02 05:28] LABS: BUN/CREATININE RATIO 15
[2020-02-02 05:30] LABS: ALANINE AMINOTRANSFERASE 15 U/L (0-55)
[2020-02-02] MEDS: dexAMETHasone 6 MG TAB (DECADRON) PO SCH (06:07)
[2020-02-02] MEDS: RT-ALBUTEROL INHALER HFA (VENTOLIN HFA) 18 GM IH SCH ×2 (07:36→15:16)
[2020-02-02] MEDS: REMDESIVIR INJ 100 MG in NS (IVPB) 230 ML IV SCH (09:23)
[2020-02-02] MEDS: PANTOPRAZOLE 40 MG (PROTONIX) TAB PO SCH (09:23)
[2020-02-02] MEDS: LACTATED RINGERS 1,000 ML IV SCH (09:23)
[2020-02-02] MEDS: SENNA W/DOCUSATE (SENOKOT S) TABLET PO SCH ×2 (10:06→22:04)
[2020-02-02] MEDS ORDERED: NS IV 500 ML 500 ML IV SCH (13:30)
[2020-02-02] MEDS ORDERED: NS IV 500 ML 500 ML IV PRN (13:45)
--- NOTE | 2020-02-02 14:59 | Progress Note - Hospitalist ---
Subjective HPI/CC On Admission Date Seen by Provider: Feb 02, 2020 Time Seen by Provider: 10:45 Sin Saleh is a 34 year old male who presented with shortness of breath. He was diagnosed with COVID-19 at Urgent care on 01/24. He first started having symptoms on 01/22. He reports fevers. He has had shortness of breath and cough. He reports body aches. He has had abnormal taste and smell. He has not had much of an appetite until this morning. He reports diarrhea. He denies nausea and vomiting. He denies abdominal pain. Je denies chest pain. He has no other complaints or concerns. Subjective/Events-last exam He is feeling better today. He is still short of breath. He still has a cough. He has not had any fevers. He is not having diarrhea. He is not having body aches. Focused Exam Lactate Level 01/31/20 18:37: Lactic Acid Level 0.83 Objective Exam Vital Signs Vital Signs Date Time Temp Pulse Resp B/P (MAP) Pulse Ox O2 Delivery O2 Flow Rate FiO2 02/02/20 14:34 36.5 89 20 126/79 94 Nasal Cannula 3.50 02/01/20 01:27 28 Capillary Refill : Less Than 3 Seconds General Appearance: No Apparent Distress, Obese Respiratory: Lungs Clear, Normal Breath Sounds, No Respiratory Distress Cardiovascular: Regular Rate, Rhythm, No Edema, No Murmur Gastrointestinal: Normal Bowel Sounds, Non Tender, Soft Extremity: Normal Inspection, Non Tender, No Pedal Edema Neurologic/Psychiatric: Alert, Oriented x3, No Motor/Sensory Deficits, Normal Mood/Affect Skin: Normal Color, Warm/Dry Results/Procedures Lab Laboratory Tests 02/02/20 04:42 Patient resulted labs reviewed. Imaging: Reviewed Imaging Report Assessment/Plan Assessment and Plan Assess & Plan/Chief Complaint Acute respiratory failure due to COVID-19 Lymphopenia due to COVID-19 COVID positive 01/24 at Urgent Care Discontinue Decadron, taking outpatient since 01/24 Continue Remdesivir Convalescent plasma ordered Supplemental oxygen as needed Obesity Clinically significant, no acute management needs DVT Prophylaxis: Lovenox Diagnosis/Problems Diagnosis/Problems (1) Pneumonia due to COVID-19 virus Status: Acute (2) Acute respiratory failure due to COVID-19 (3) Lymphopenia associated with COVID-19 Status: Acute (4) Obesity Status: Chronic Clinical Quality Measures DVT/VTE Risk/Contraindication: Risk Factor Score Per Nursin RFS Level Per Nursing on Admit: 2=Moderate CAMELIA SERNA MD Feb 02, 2020 14:59
[2020-02-02] MEDS: RT-ALBUTEROL INHALER HFA (VENTOLIN HFA) 18 GM IH PRN (15:16)
[2020-02-02] MEDS: ZOLPIDEM 5 MG (AMBIEN) TAB PO SCH (22:04)
[2020-02-02] MEDS: ACETAMINOPHEN 500 MG TAB (TYLENOL) PO PRN (22:04)
[2020-02-02] MEDS: MELATONIN 3 MG TABLET PO PRN (22:04)
[2020-02-02] MEDS: ENOXAPARIN 40 MG/0.4 ML (LOVENOX) SYR SC SCH (22:04)
[2020-02-02] MEDS ORDERED: LOPERAMIDE 2 MG (IMODIUM) TABLET PO PRN (23:45)
[2020-02-03] VITALS (7 sets, daily range): BP systolic 117–138; BP diastolic 66–89
[2020-02-03] MEDS: LACTATED RINGERS 1,000 ML IV SCH ×2 (01:26→15:20)
[2020-02-03 05:40] LABS: BASOPHILS % (AUTO) 0 % (0-10); EOSINOPHILS % (AUTO) 0 % (0-10); HEMATOCRIT 37 % (40-54); HEMOGLOBIN 12.7 g/dL (13.3-17.7); LYMPHOCYTES # (AUTO) 0.9 10^3/uL (1.0-4.0); LYMPHOCYTES % (AUTO) 19 % (12-44); MEAN CORPUSCULAR HEMOGLOBIN 31 pg (25-34); MEAN CORPUSCULAR HGB CONC 34 g/dL (32-36); MEAN CORPUSCULAR VOLUME 90 fL (80-99); MEAN PLATELET VOLUME 9.5 fL (9.0-12.2); MONOCYTES # (AUTO) 0.5 10^3/uL (0.0-1.0); MONOCYTES % (AUTO) 10 % (0-12); NEUTROPHILS # (AUTO) 3.2 10^3/uL (1.8-7.8); NEUTROPHILS % (AUTO) 70 % (42-75); PLATELET COUNT 147 10^3/uL (130-400); WHITE BLOOD COUNT 4.6 10^3/uL (4.3-11.0)
[2020-02-03 05:51] LABS: ALBUMIN 3.4 GM/DL (3.2-4.5); CHLORIDE 106 MMOL/L (98-107); POTASSIUM 3.9 MMOL/L (3.6-5.0); SODIUM 141 MMOL/L (135-145)
[2020-02-03 05:52] LABS: CALCIUM 8.1 MG/DL (8.5-10.1)
[2020-02-03 05:54] LABS: GLUCOSE 95 MG/DL (70-105)
[2020-02-03 05:55] LABS: BILIRUBIN,TOTAL 0.4 MG/DL (0.1-1.0); CARBON DIOXIDE 24 MMOL/L (21-32)
[2020-02-03 05:57] LABS: ALKALINE PHOSPHATASE 36 U/L (40-136); CREATININE SERUM 0.79 MG/DL (0.60-1.30); GFR ESTIMATED > 60
[2020-02-03 05:58] LABS: BUN/CREATININE RATIO 20
[2020-02-03 06:00] LABS: ALANINE AMINOTRANSFERASE 19 U/L (0-55)
[2020-02-03] MEDS: dexAMETHasone 6 MG TAB (DECADRON) PO SCH (06:14)
[2020-02-03] MEDS: RT-ALBUTEROL INHALER HFA (VENTOLIN HFA) 18 GM IH SCH ×2 (08:29→20:00)
[2020-02-03] MEDS: REMDESIVIR INJ 100 MG in NS (IVPB) 230 ML IV SCH (09:01)
[2020-02-03] MEDS: PANTOPRAZOLE 40 MG (PROTONIX) TAB PO SCH (09:01)
[2020-02-03] MEDS: SENNA W/DOCUSATE (SENOKOT S) TABLET PO SCH ×2 (09:01→21:22)
--- NOTE | 2020-02-03 15:44 | Progress Note - Hospitalist ---
Subjective HPI/CC On Admission Date Seen by Provider: Feb 03, 2020 Time Seen by Provider: 10:40 Sin Saleh is a 34 year old male who presented with shortness of breath. He was diagnosed with COVID-19 at Urgent care on 01/24. He first started having symptoms on 01/22. He reports fevers. He has had shortness of breath and cough. He reports body aches. He has had abnormal taste and smell. He has not had much of an appetite until this morning. He reports diarrhea. He denies nausea and vomiting. He denies abdominal pain. Je denies chest pain. He has no other complaints or concerns. Subjective/Events-last exam he is feeling about the same as yesterday. He still feels short of breath. He still has a cough. He has not had any fevers. He was able to eat a little bit. He denies any nausea and vomiting. He has been up and moving around minimally. Focused Exam Lactate Level 01/31/20 18:37: Lactic Acid Level 0.83 Objective Exam Vital Signs Vital Signs Date Time Temp Pulse Resp B/P (MAP) Pulse Ox O2 Delivery O2 Flow Rate FiO2 02/03/20 12:00 36.0 86 20 121/66 (84) 92 Nasal Cannula 3.50 02/01/20 01:27 28 Capillary Refill : Less Than 3 Seconds General Appearance: No Apparent Distress, Obese Respiratory: Lungs Clear, Normal Breath Sounds, No Respiratory Distress Cardiovascular: Regular Rate, Rhythm, No Edema, No Murmur Gastrointestinal: Normal Bowel Sounds, Non Tender, Soft Extremity: Normal Inspection, Non Tender, No Pedal Edema Neurologic/Psychiatric: Alert, Oriented x3, No Motor/Sensory Deficits, Normal Mood/Affect Skin: Normal Color, Warm/Dry Results/Procedures Lab Laboratory Tests 02/03/20 05:07 Patient resulted labs reviewed. Imaging: Reviewed Imaging Report Assessment/Plan Assessment and Plan Assess & Plan/Chief Complaint Acute respiratory failure due to COVID-19 COVID positive 01/24 at Urgent Care Completed course of Decadron Continue Remdesivir s/p 1 unit convalescent plasma Supplemental oxygen as needed Obesity Clinically significant, no acute management needs DVT Prophylaxis: Lovenox Lymphopenia due to COVID-19, resolved Diagnosis/Problems Diagnosis/Problems (1) Pneumonia due to COVID-19 virus Status: Acute (2) Acute respiratory failure due to COVID-19 (3) Lymphopenia associated with COVID-19 Status: Acute (4) Obesity Status: Chronic Clinical Quality Measures DVT/VTE Risk/Contraindication: Risk Factor Score Per Nursin RFS Level Per Nursing on Admit: 2=Moderate CAMELIA SERNA MD Feb 03, 2020 15:44
[2020-02-03] MEDS: ZOLPIDEM 5 MG (AMBIEN) TAB PO SCH (21:22)
[2020-02-03] MEDS: MELATONIN 3 MG TABLET PO PRN (21:22)
[2020-02-03] MEDS: ENOXAPARIN 40 MG/0.4 ML (LOVENOX) SYR SC SCH (21:22)
[2020-02-03] MEDS: ACETAMINOPHEN 500 MG TAB (TYLENOL) PO PRN (21:22)
[2020-02-04] VITALS: BP 136/80
[2020-02-04 04:00] VITALS: BP 129/83
[2020-02-04] MEDS: LACTATED RINGERS 1,000 ML IV SCH (04:42)
[2020-02-04] MEDS: dexAMETHasone 6 MG TAB (DECADRON) PO SCH (06:13)
[2020-02-04 07:27] LABS: ALANINE AMINOTRANSFERASE 44 U/L (0-55); ALBUMIN 3.3 GM/DL (3.2-4.5); ALKALINE PHOSPHATASE 35 U/L (40-136); BILIRUBIN,TOTAL 0.4 MG/DL (0.1-1.0); BUN/CREATININE RATIO 22; CALCIUM 8.1 MG/DL (8.5-10.1); CARBON DIOXIDE 26 MMOL/L (21-32); CHLORIDE 105 MMOL/L (98-107); CREATININE SERUM 0.83 MG/DL (0.60-1.30); GFR ESTIMATED > 60; GLUCOSE 91 MG/DL (70-105); POTASSIUM 4.1 MMOL/L (3.6-5.0); SODIUM 141 MMOL/L (135-145); TOTAL PROTEIN 5.5 GM/DL (6.4-8.2)
[2020-02-04 08:00] VITALS: BP 121/74
[2020-02-04] MEDS: PANTOPRAZOLE 40 MG (PROTONIX) TAB PO SCH (08:05)
[2020-02-04] MEDS: REMDESIVIR INJ 100 MG in NS (IVPB) 230 ML IV SCH (08:05)
[2020-02-04] MEDS: SENNA W/DOCUSATE (SENOKOT S) TABLET PO SCH ×2 (08:05→21:01)
[2020-02-04] MEDS: RT-ALBUTEROL INHALER HFA (VENTOLIN HFA) 18 GM IH SCH ×2 (08:21→21:05)
[2020-02-04 12:00] VITALS: BP 114/62
--- NOTE | 2020-02-04 15:17 | Progress Note - Hospitalist ---
Subjective HPI/CC On Admission Date Seen by Provider: Feb 04, 2020 Time Seen by Provider: 10:35 Sin Saleh is a 34 year old male who presented with shortness of breath. He was diagnosed with COVID-19 at Urgent care on 01/24. He first started having symptoms on 01/22. He reports fevers. He has had shortness of breath and cough. He reports body aches. He has had abnormal taste and smell. He has not had much of an appetite until this morning. He reports diarrhea. He denies nausea and vomiting. He denies abdominal pain. Je denies chest pain. He has no other complaints or concerns. Subjective/Events-last exam He reports feeling better. He just took a shower. He was getting a little short of breath when he was up moving around. He denies fevers. He has been eating and drinking without issue. Objective Exam Vital Signs Vital Signs Date Time Temp Pulse Resp B/P (MAP) Pulse Ox O2 Delivery O2 Flow Rate FiO2 02/04/20 08:21 93 Nasal Cannula 2.00 02/04/20 08:00 36.8 65 18 121/74 (90) 02/01/20 01:27 28 Capillary Refill : Less Than 3 Seconds General Appearance: No Apparent Distress, Obese Respiratory: Lungs Clear, Normal Breath Sounds, No Respiratory Distress Cardiovascular: Regular Rate, Rhythm, No Edema, No Murmur Gastrointestinal: Normal Bowel Sounds, Non Tender, Soft Extremity: Normal Inspection, Non Tender, No Pedal Edema Neurologic/Psychiatric: Alert, Oriented x3, No Motor/Sensory Deficits, Normal Mood/Affect Skin: Normal Color, Warm/Dry Results/Procedures Lab Laboratory Tests 02/04/20 07:00 Patient resulted labs reviewed. Imaging: Reviewed Imaging Report Assessment/Plan Assessment and Plan Assess & Plan/Chief Complaint Acute respiratory failure due to COVID-19 COVID positive 01/24 at Urgent Care Completed course of Decadron Continue Remdesivir s/p 1 unit convalescent plasma Supplemental oxygen as needed Obesity Clinically significant, no acute management needs DVT Prophylaxis: Lovenox Lymphopenia due to COVID-19, resolved Diagnosis/Problems Diagnosis/Problems (1) Pneumonia due to COVID-19 virus Status: Acute (2) Acute respiratory failure due to COVID-19 (3) Lymphopenia associated with COVID-19 Status: Resolved Resolution Date/Time: 02/04/20 @ 15:18 (4) Obesity Status: Chronic Clinical Quality Measures DVT/VTE Risk/Contraindication: Risk Factor Score Per Nursin RFS Level Per Nursing on Admit: 2=Moderate CAMELIA SERNA MD Feb 04, 2020 15:17
[2020-02-04 15:52] VITALS: BP 127/75
[2020-02-04 20:18] VITALS: BP 131/73
[2020-02-04] MEDS: ZOLPIDEM 5 MG (AMBIEN) TAB PO SCH (21:01)
[2020-02-04] MEDS: ENOXAPARIN 40 MG/0.4 ML (LOVENOX) SYR SC SCH (21:02)
[2020-02-04] MEDS: MELATONIN 3 MG TABLET PO PRN (21:02)
[2020-02-05] VITALS: BP 132/73
[2020-02-05 03:56] VITALS: BP 104/54
[2020-02-05] MEDS: dexAMETHasone 6 MG TAB (DECADRON) PO SCH (06:23)
[2020-02-05 06:50] LABS: ALBUMIN 3.4 GM/DL (3.2-4.5)
[2020-02-05 06:51] LABS: CHLORIDE 104 MMOL/L (98-107); SODIUM 138 MMOL/L (135-145)
[2020-02-05 06:53] LABS: GLUCOSE 84 MG/DL (70-105)
[2020-02-05 06:54] LABS: CARBON DIOXIDE 23 MMOL/L (21-32)
[2020-02-05 06:55] LABS: BILIRUBIN,TOTAL 0.4 MG/DL (0.1-1.0)
[2020-02-05 06:56] LABS: ALKALINE PHOSPHATASE 38 U/L (40-136)
[2020-02-05 06:57] LABS: CREATININE SERUM 0.85 MG/DL (0.60-1.30); GFR ESTIMATED > 60
[2020-02-05 06:58] LABS: BUN/CREATININE RATIO 22
[2020-02-05 07:00] LABS: ALANINE AMINOTRANSFERASE 51 U/L (0-55)
[2020-02-05] MEDS: RT-ALBUTEROL INHALER HFA (VENTOLIN HFA) 18 GM IH SCH (07:24)
[2020-02-05 08:00] VITALS: BP 122/67
[2020-02-05] MEDS: REMDESIVIR INJ 100 MG in NS (IVPB) 230 ML IV SCH (09:03)
[2020-02-05] MEDS: SENNA W/DOCUSATE (SENOKOT S) TABLET PO SCH (09:03)
[2020-02-05] MEDS: PANTOPRAZOLE 40 MG (PROTONIX) TAB PO SCH (09:03)
[2020-02-05 12:00] VITALS: BP 115/60
--- NOTE | 2020-02-05 14:53 | NUR ---
pt was placed on 2LNC after 2 mins of walking bc pt dropped down to 85%. after pt was placed on 2L pt SpO2 stayed above 92% for the remainer of the walk study. Addendum: 02/05/20 at 1453 by JEAN SALAZAR RT Amended: Links added.
--- NOTE | 2020-02-05 15:49 | NUR ---
CM/SS finalized discharge. Plan: The patient will discharge to home with new o2 need. The patient's significant other will lemon picker. DME: The patient was presented with a choice list. He chose [facility]. CM/SS faxed needed documents and they will deliver to the hospital. No further needs.
[2020-02-05 16:34] VITALS: BP 115/60
--- NOTE | 2020-02-05 16:34 | NUR ---
GUNJAN TORRES demonstrates understanding of discharge instructions and accurately returns instructions upon questioning. Copy of Post-Discharge Instructions and Medication Discharge Instructions given to PATIENT. GUNJAN TORRES is able to manage continuing needs after discharge. Patients belongings returned to . Skin dry and intact; no breakdown noted. Patient discharged from [facility] on 02/04 at 1634. GUNJAN TORRES left floor via , accompanied by STAFF.
--- NOTE | 2020-02-06 21:45 | Discharge Summary ---
Discharge Summary Hospital Course Was the Problem List Reviewed?: Yes Problems/Dx: (1) Pneumonia due to COVID-19 virus Status: Acute (2) Acute respiratory failure due to COVID-19 Status: Acute (3) Lymphopenia associated with COVID-19 Status: Resolved (4) Obesity Status: Chronic Hospital Course Date of Admission: Jan 31, 2020 at 19:49 Admission Diagnosis : Acute respiratory failure due to COVID-19 Family Physician/Provider: Marie Saul DO Date of Discharge: 02/06/20 Discharge Diagnosis: Acute respiratory failure due to COVID-19 Hospital Course: Sin Saleh is a 34 year old male who was admitted with acute respiratory failure due to COVID-19. He was treated with Decadron, Remdesivir, and convalescent p lasma. His symptoms continued to improve every day. His oxygen requirement improved, but he still required 2 L oxygen with activity at the time of discharge. He should follow up with his PCP in a week or two. Labs and Pending Lab Test: Microbiology 01/31/20 Blood Culture - Preliminary, Resulted No growth Home Meds Active Reported Tylenol (Acetaminophen) 325 Mg Tablet 650 Mg PO Q6H PRN TAKES 2 (325MG) TABLETS Dextroamp-Amphet ER 15 mg Cap (Dextroamphetamine/Amphetamine) 15 Mg Cap.er.24h 15 Mg PO DAILY Fenofibrate (Fenofibrate,Micronized) 134 Mg Capsule 134 Mg PO DAILY Omeprazole 40 Mg Capsule.dr 40 Mg PO DAILY Allopurinol 300 Mg Tablet 300 Mg PO DAILY Assessment/Pt Instructions Take medications as prescribed. Follow up with your PCP. Return with worsening shortness of breath. Discharge Planning: <30 minutes discharge planning Discharge Instructions Discharge Diet: No Restrictions Activity as Tolerated: Yes Discharge Physical Examination Vital Signs Vital Signs Date Time Temp Pulse Resp B/P (MAP) Pulse Ox O2 Delivery O2 Flow Rate FiO2 02/05/20 16:34 36.5 72 18 115/60 96 Room Air 2.00 02/01/20 01:27 28 General Appearance: No Apparent Distress, Obese HEENT: PERRL/EOMI, Pharynx Normal Respiratory: Lungs Clear, Normal Breath Sounds, No Respiratory Distress Cardiovascular: Regular Rate, Rhythm, No Edema, No Murmur Gastrointestinal: Normal Bowel Sounds, Non Tender, Soft Extremity: Normal Inspection, Non Tender, No Pedal Edema Skin: Normal Color, Warm/Dry Neurologic/Psychiatric: Alert, Oriented x3, No Motor/Sensory Deficits, Normal Mood/Affect Allergies: Coded Allergies: No Known Drug Allergies (Unverified , 04/22/19) Copy Copies To 1: MARIE SAUL DO Discharge Summary Date of Admission Jan 31, 2020 at 19:49 Date of Discharge Feb 05, 2020 at 16:34 Discharge Date: Feb 05, 2020 Discharge Time: 16:34 Admission Diagnosis Acute respiratory failure due to COVID-19 Discharge Diagnosis Acute respiratory failure due to COVID-19 (1) Pneumonia due to COVID-19 virus Status: Acute (2) Acute respiratory failure due to COVID-19 Status: Acute (3) Lymphopenia associated with COVID-19 Status: Resolved (4) Obesity Status: Chronic Clinical Quality Measures DVT/VTE Risk/Contraindication: Risk Factor Score Per Nursin RFS Level Per Nursing on Admit: 2=Moderate CAMLEIA SERNA MD Feb 06, 2020 21:43
== END 2020-02-05 16:34 | disposition home or self-care (01) | DRG 177 ==
LOC: EDUNIT# 17:59 → ER 18:01 → 4TH 19:49
PROVIDERS: ADMIT Family Medicine; ATTEND Internal Medicine
PROC: XW13325 Transfusion of Convalescent Plasma (Nonautologous) into Peripheral Vein, Percutaneous Approach, New Technology Group 5 (ICD-10-PCS; principal; 2020-02-02)
PROC: XW033E5 Introduction of Remdesivir Anti-infective into Peripheral Vein, Percutaneous Approach, New Technology Group 5 (ICD-10-PCS; 2020-02-02)
DX: U07.1 COVID-19 (principal); J12.89 Other viral pneumonia; J96.01 Acute respiratory failure with hypoxia; D72.810 Lymphocytopenia; E66.9 Obesity, unspecified; Z87.891 Personal history of nicotine dependence; Z68.38 Body mass index [BMI] 38.0-38.9, adult
CPT/HCPCS: 36415; 71045; 80053; 83605; 84145; 85025; 85379; 85610; 85730; 86141; 86900; 86901; 87040; 90686; 94640; 94760; 94761